=== PATIENT | female | born 1995 | race Caucasian/White ===

== ENCOUNTER 2022-02-09 05:33 | Inpatient (IN) | payer BC ==
[2022-02-08 09:34] LABS: #Eosinphils 0.1 10x3/uL (0.0-0.5); #Monocytes 0.4 10x3/uL (0.0-1.1); #Neutrophils 5.1 10x3/uL (1.5-8.4); %Basophils 0.4 % (0.0-2.0); %Eosinophils 1.6 % (0.0-6.0); %Lymphocytes 26.1 % (18.0-47.0); %Monocytes 4.7 % (0.0-10.0); %Neutrophils 66.7 % (40.0-75.0); Hemoglobin 9.9 g/dL (12.0-15.5); Mean Corpuscular HGB CONC 32.7 g/dL (32.0-36.0); Mean Corpuscular Volume 79.5 fl (81.6-98.3); Mean Platelet Volume 10.6 fl (7.4-10.4); Platelet Count 253 10x3/uL (150-450); RBC Distribution Width 19.3 % (11.5-14.5); Red Blood Cell (RBC) Count 3.81 10x6/uL (3.90-5.03); White Blood Cell (WBC) Count 7.7 10x3/uL (3.5-10.5)
[2022-02-08 10:02] LABS: SARS-CoV-2 NAA Rapid Test Not Detected (NotDetected)
[2022-02-08 10:07] LABS: Hep B Surf Ag Non-Reactive S/CO (NonReactive)
[2022-02-08 10:09] LABS: Syphilis Antibody Nonreactive (Nonreactive); Syphilis Antibody Index 0.02 S/CO (<1.00 Non-Reactive)
[2022-02-09] MEDS ORDERED: Ondansetron PF 4 MG/2 ML Vial IVP PRN ×3 (06:03→12:35)
[2022-02-09] MEDS ORDERED: Famotidine/PF 20 mg/2ml Vial SLOW IVP PRN (06:03)
[2022-02-09] MEDS ORDERED: Docusate 100 MG CAP PO PRN (06:03)
[2022-02-09] MEDS ORDERED: CEFAZOLIN 2 GM in Sodium Chloride 0.9% 100 ML IVPB SCH (06:03)
[2022-02-09] MEDS ORDERED: Bicitra 30 ML UDCUP PO PRN (06:03)
[2022-02-09] MEDS ORDERED: hydrALAZINE 20 MG/ML VIAL SLOW IVP PRN ×2 (06:03→12:35)
[2022-02-09] MEDS ORDERED: Promethazine HCl 25 MG/ML VIAL IM PRN ×2 (06:03→07:02)
[2022-02-09] MEDS ORDERED: Lactated Ringer's 1,000 ML IV SCH (06:30)
[2022-02-09] MEDS ORDERED: Ondansetron HCl/PF 4 MG/2 ML Vial IVP PRN (07:02)
[2022-02-09] MEDS ORDERED: Naloxone HCl 0.4 mg/ml Vial IV PRN (07:02)
[2022-02-09] MEDS ORDERED: Fentanyl 100 MCG/2 ML VIAL SLOW IVP PRN (07:02)
[2022-02-09] MEDS ORDERED: Moisturizing Cream (Eucerin) 113 GM JAR TOP PRN (07:02)
[2022-02-09] MEDS ORDERED: Meperidine HCl/PF 25 MG/ML VIAL SLOW IVP PRN (07:02)
[2022-02-09] MEDS ORDERED: Naloxone HCl 0.4 mg/ml Vial IVP PRN ×2 (07:02)
[2022-02-09] MEDS ORDERED: diphenhydrAMINE 50 MG/ML VIAL IVP PRN (07:02)
[2022-02-09] MEDS ORDERED: Promethazine HCl 25 MG SUPP PR PRN (07:02)
[2022-02-09] MEDS ORDERED: Communication Order-Pharmacy FS SCH (07:15)
[2022-02-09] MEDS ORDERED: Ketorolac Tromethamine 30 MG/ML VIAL IVP SCH (07:15)
[2022-02-09] MEDS ORDERED: ePHEDrine Sulfate 50 MG/10 ML VIAL ONE (07:15)
[2022-02-09] MEDS ORDERED: Morphine PF 10 MG/10 ML VIAL ONE (07:15)
[2022-02-09] MEDS ORDERED: Phenylephrine 40 MG/NS 250 ML 250 ML ONE (07:16)
[2022-02-09] MEDS ORDERED: Ketorolac Tromethamine 30 MG/ML VIAL ONE (07:16)
[2022-02-09] MEDS ORDERED: Ondansetron PF 4 MG/2 ML Vial ONE (07:16)
[2022-02-09] MEDS ORDERED: Oxytocin 10 UNITS/ML VIAL ONE ×2 (07:16→08:51)
[2022-02-09] MEDS ORDERED: PHENYLEPHRINE-NS 100 MCG/ML 10 ML SYRINGE ONE (07:16)
[2022-02-09] MEDS ORDERED: Fentanyl 100 MCG/2 ML VIAL ONE ×3 (08:26→09:37)
[2022-02-09] MEDS ORDERED: Midazolam HCl 2 mg/2 ml Vial ONE (09:39)
[2022-02-09] MEDS ORDERED: Misoprostol 200 MCG TAB PR SCH (10:30)
[2022-02-09] MEDS ORDERED: Boostrix 0.5 ML (Tdap) VIAL (>/=7 yrs of age) IM ONE (12:35)
[2022-02-09] MEDS ORDERED: Lanolin Ointment 7 GM TUBE TOP PRN (12:35)
[2022-02-09] MEDS ORDERED: NS w/ Oxytocin 30 units 500 ML IV SCH (12:35)
[2022-02-09] MEDS ORDERED: Methylergonovine 0.2 MG/ML VIAL IM PRN (12:35)
[2022-02-09] MEDS ORDERED: Simethicone Chewable 80 MG TAB PO PRN (12:35)
[2022-02-09 14:13] LABS: Hemoglobin 7.3 g/dL (12.0-15.5); Mean Corpuscular HGB CONC 32.7 g/dL (32.0-36.0); Mean Corpuscular Hemoglobin 26.3 pg (27.0-33.0); Mean Corpuscular Volume 80.2 fl (81.6-98.3); Platelet Count 245 10x3/uL (130-400); RBC Distribution Width 19.4 % (11.5-14.5); Red Blood Cell (RBC) Count 2.78 10x6/uL (3.90-5.03)
[2022-02-09] MEDS: Ferrous Sulfate 325 MG TAB PO SCH (21:32)
[2022-02-10] MEDS: Ketorolac Tromethamine 30 MG/ML VIAL IVP PRN ×2 (00:04→06:46)
[2022-02-10 02:45] VITALS: BMI 27.1
[2022-02-10 06:43] LABS: Hemoglobin 5.1 g/dL (12.0-15.5); Mean Corpuscular HGB CONC 32.9 g/dL (32.0-36.0); Mean Corpuscular Volume 79.1 fl (81.6-98.3); Mean Platelet Volume 10.3 fl (7.4-10.4); Platelet Count 200 10x3/uL (150-450); RBC Distribution Width 19.5 % (11.5-14.5); Red Blood Cell (RBC) Count 1.96 10x6/uL (3.90-5.03); White Blood Cell (WBC) Count 10.9 10x3/uL (3.5-10.5)
[2022-02-10] MEDS: Ferrous Sulfate 325 MG TAB PO SCH ×2 (09:07→21:30)
[2022-02-10] MEDS: Prenatal Vitamin 1 TAB PO SCH (09:07)
[2022-02-10] MEDS: HYDROcodone/Acetaminophen 5/325 mg Tablet PO PRN ×3 (11:13→23:28)
[2022-02-10] MEDS: Ibuprofen 800 MG TAB PO SCH ×2 (13:33→21:30)
[2022-02-10 18:05] LABS: Hemoglobin 8.9 g/dL (12.0-15.5)
[2022-02-11] MEDS: Ibuprofen 800 MG TAB PO SCH ×3 (05:06→21:29)
[2022-02-11] MEDS: HYDROcodone/Acetaminophen 5/325 mg Tablet PO PRN ×5 (05:06→21:30)
[2022-02-11] MEDS: Prenatal Vitamin 1 TAB PO SCH (09:05)
[2022-02-11] MEDS: Ferrous Sulfate 325 MG TAB PO SCH ×2 (09:05→21:30)
[2022-02-12] MEDS: HYDROcodone/Acetaminophen 5/325 mg Tablet PO PRN ×2 (03:55→11:23)
[2022-02-12] MEDS: Ibuprofen 800 MG TAB PO SCH (05:03)
[2022-02-12 08:04] VITALS: BP 142/84; TEMP 98.5
[2022-02-12] MEDS: Ferrous Sulfate 325 MG TAB PO SCH (08:38)
[2022-02-12] MEDS: Prenatal Vitamin 1 TAB PO SCH (08:38)
== END 2022-02-12 11:40 | disposition home or self-care (01) | DRG 784 ==
LOC: CSHLD 05:33 → CSHPP 12:34
PROVIDERS: ADMIT Obstetrics & Gynecology; ATTEND Obstetrics & Gynecology
PROC: 10D00Z1 Extraction of Products of Conception, Low, Open Approach (ICD-10-PCS; principal; 2022-02-09)
PROC: 0UB60ZZ Excision of Left Fallopian Tube, Open Approach (ICD-10-PCS; 2022-02-09)
PROC: 0UB10ZZ Excision of Left Ovary, Open Approach (ICD-10-PCS; 2022-02-09)
PROC: 30233N1 Transfusion of Nonautologous Red Blood Cells into Peripheral Vein, Percutaneous Approach (ICD-10-PCS; 2022-02-09)
DX: O36.63X0 Maternal care for excessive fetal growth, third trimester, not applicable or unspecified (principal); O72.1 Other immediate postpartum hemorrhage; Z3A.39 39 weeks gestation of pregnancy; Z37.0 Single live birth; Z20.822 Contact with and (suspected) exposure to COVID-19; O34.83 Maternal care for other abnormalities of pelvic organs, third trimester; N83.202 Unspecified ovarian cyst, left side; O33.9 Maternal care for disproportion, unspecified
CPT/HCPCS: 36415; 36430; 51702; 85025; 85027; 86780; 86850; 86900; 86901; 87340; 88307; J1200; J1885; J2250; J2274; J2405; J2590; J3010; J3490; P9016; S0028; U0002